=== PATIENT | female | born 1980 | race Caucasian/White ===

== ENCOUNTER 2016-12-28 23:26 | Emergency (ER) | payer MEDICAID ==
[~2016-12-28] VITALS: Ht 162.6 cm; Wt 64.0 kg
[~2016-12-28 23:26] MED LIST: ACYC-101 PO; ALBU6.7H INH; MEDR4PAK PO; MORP1TAB25 PO
[2016-12-28 23:29] VITALS: BP 151/112; PULSE 103; RESP 16; TEMP 97.7; O2SAT 99
[2016-12-28] MEDS ORDERED: ZOFR4TAB3 SL (23:48)
[2016-12-28] MEDS ORDERED: TYLE325T PO (23:48)
[2016-12-28] MEDS ORDERED: PRIL20TA2 PO (23:48)
[2016-12-28] MEDS ORDERED: PANC1CAP9 PO (23:48)
[2016-12-29] MEDS ORDERED: SODIUM CHLORIDE 0.9% FLUSH 10 ML FLUSH IV FLUSH PRN (00:15)
--- NOTE | 2016-12-29 00:39 | RADRPT ---
EXAM DATE/TIME: 12/29/2016 00:22 [place] COMPARISON: CHEST SINGLE AP, November 12, 2015, 14:04. INDICATIONS : Chest discomfort, abdominal pain for 3 days MEDICAL HISTORY : None. SURGICAL HISTORY : None. ENCOUNTER: Initial ACUITY: 3 days PAIN SCORE: 0/10 LOCATION: Bilateral chest FINDINGS: A single view of the chest demonstrates the lungs to be symmetrically aerated without evidence of mas s, infiltrate or effusion. The cardiomediastinal contours are unremarkable. Osseous structures are intact. CONCLUSION: The lungs are clear. Socrates Moore MD on December 29, 2016 at 0:38 Board Certified Radiologist. This report was verified electronically.
[2016-12-29] MEDS ORDERED: MORPHINE SULFATE 4 MG/ML INJ IV PUSH ONE ×2 (01:00→02:00)
[2016-12-29] MEDS ORDERED: ONDANSETRON HCL 4 MG/2 ML VIAL IV PUSH ONE ×2 (01:00→01:45)
[2016-12-29 01:19] LABS: BASOPHIL # 0.3 TH/MM3 (0-0.2); BASOPHIL % 3.1 % (0.0-2.0); EOSINOPHIL # 0.3 TH/MM3 (0-0.4); HEMATOCRIT 47.1 % (35.0-46.0); HEMO FLAGS DIFF FINAL; MEAN CELL VOLUME 93.7 FL (80.0-100.0); MEAN CORPUSCULAR HEMOGLOBIN 31.2 PG (27.0-34.0); MEAN CORPUSCULAR HGB CONC 33.3 % (32.0-36.0); MONO % 6.3 % (0.0-8.0); NEUT % 67.6 % (16.0-70.0); PLATELET COUNT 155 TH/MM3 (150-450); RED BLOOD COUNT 5.03 MIL/MM3 (4.00-5.30); RED CELL DISTRIBUTION WIDTH 13.5 % (11.6-17.2); WHITE BLOOD COUNT 10.2 TH/MM3 (4.0-11.0)
[2016-12-29 01:20] VITALS: BP 145/101; PULSE 95; RESP 17; O2SAT 100
[2016-12-29 01:27] LABS: BLOOD, URINE NEG (NEG); GLUCOSE,URINE NEG (NEG); KETONE, URINE NEG (NEG); NITRITE,URINE NEG (NEG); PH, URINE 5.5 (5.0-8.5)
[2016-12-29 01:28] LABS: CHLORIDE 105 MEQ/L (98-107); POTASSIUM 4.2 MEQ/L (3.5-5.1); SODIUM (NA) 138 MEQ/L (136-145)
[2016-12-29] MEDS ORDERED: SUCRALFATE 1 GM/10 ML CUP PO ONE (01:30)
[2016-12-29 01:32] LABS: ANION GAP 10 MEQ/L (5-15); APTT (PATIENT) 25.9 SEC (24.3-30.1); BICARBONATE 22.7 MEQ/L (21.0-32.0); BLOOD UREA NITROGEN 5 MG/DL (7-18); PROTHROMBIN TIME - PATIENT 11.5 SEC (9.8-11.6)
[2016-12-29 01:35] LABS: ALT (GPT) 128 U/L (10-53); AST (GOT) 171 U/L (15-37); GLOMERULAR FILTRATION RATE 119 ML/MIN (>89)
[2016-12-29 01:36] LABS: BACTERIA, URINE MANY /hpf; COMMENT (UR) CULTURE INDICATED; CULTURE IF INDICATED CULTURE INDICATED; RBC, URINE 0-2 /hpf (0-3); SQUAMOUS EPITHELIAL CELL URINE > 8 /hpf (0-5); TOTAL BILIRUBIN ADULT 0.7 MG/DL (0.2-1.0); URINE COLOR YELLOW (YELLW/STRAW); WBC, URINE 0-2 /hpf (0-5)
[2016-12-29 01:38] LABS: ALKALINE PHOSPHATASE 204 U/L (45-117)
[2016-12-29 01:48] LABS: ALCOHOL 89 MG/DL (0-5)
[2016-12-29] MEDS ORDERED: METOCLOPRAMIDE HCL 10 MG/2 ML VIAL IV PUSH ONE (02:00)
[2016-12-29 02:48] VITALS: BP 115/91; PULSE 102; RESP 17; TEMP 98.5; O2SAT 97
--- NOTE | 2016-12-29 02:58 | PD ---
HPI Chief Complaint: Abdominal Pain Time Seen by Provider: 00:15 Travel History International Travel<30 days: No Contact w/Intl Traveler<30days: No Traveled to known affect area: No History of Present Illness HPI 36-year-old female presents to the emergency department for evaluation of abdominal pain with nausea and vomiting. Patient states symptoms have worsened over the past few days. Patient has history of pancreatitis and cirrhosis. Patient admits to drinking alcohol recently. Patient takes morphine for chronic pain. Patient denies fever or chills. No report of hematemesis or coffee-ground emesis. Patient denies melena hematochezia. Patient has had no injury or fall. Patient states that she's noticed increasing abdominal girth although her symptoms were worse yesterday than today and abdominal girth was greater yesterday than today. Patient denies . Patient is unable to identify exacerbating or alleviating factors. PFSH Past Medical History Narrative Medical Pancreatitis anxiety cirrhosis alcoholism polysubstance use cholecystectomy liver biopsy; nursing notes reviewed Arthritis: No Asthma: Yes Autoimmune Disease: No Blood Disorders: No Anxiety: Yes Depression: No Heart Rhythm Problems: No Cancer: No Cardiovascular Problems: Yes High Cholesterol: No Chemotherapy: No Chest Pain: No Congestive Heart Failure: No Cirrhosis: Yes COPD: No Cerebrovascular Accident: No Diabetes: No Patient Takes Glucophage: No Diminished Hearing: No Diverticulitis: Yes Endocrine: No Gastrointestinal Disorders: Yes GERD: Yes Genitourinary: No Headaches: No Hepatitis: Yes Hiatal Hernia: No Hypertension: Yes (MED NON-COMPLIANCE) Immune Disorder: No Implanted Vascular Access Dvce: No Kidney Stones: No Musculoskeletal: Yes Neurologic: No Psychiatric: Yes Reproductive: No Respiratory: Yes (ASTHMA) Integumentary: Yes (STATES FAMILY MEMBERS HAVE HAD MRSA) Immunizations Current: No Migraines: No Myocardial Infarction: No Pancreatitis: Yes Radiation Therapy: No Renal Failure: No Seizures: Yes Sickle Cell Disease: No Sleep Apnea: No Thyroid Disease: No Ulcer: Yes Tetanus Vaccination: Unknown Influenza Vaccination: No PNEUMOCCOCAL Vaccine (Year): 2 ?: Not LMP: 12/01/2016 Menopausal: No : 1 Para: 1 Miscarriage: 0 : 0 Ovarian Cysts: Yes Past Surgical History Abdominal Surgery: Yes AICD: No Arteriovenous Shunt: No Cardiac Surgery: No Cholecystectomy: Yes (10/2013) Ear Surgery: No Endocrine Surgery: No Eye Surgery: No Genitourinary Surgery: No Gynecologic Surgery: Yes Insulin Pump: No Joint Replacement: No Neurologic Surgery: No Oral Surgery: No Pacemaker: No Thoracic Surgery: No Other Surgery: Yes (LIVER BIOPSY) Social History Alcohol Use: Yes (TODAY [employer]TA[employer] YESTERDAY) Tobacco Use: Yes Substance Use: Yes (MARIJUANA) Allergies-Medications (Allergen,Severity, Reaction): Coded Allergies: *MDRO Multi-Drug Resistant Organism (Verified Adverse Reaction, Unknown, 12/28/16) MRSA (wound) 02/2014 Reported Meds & Prescriptions Reported Meds & Active Scripts Active Proventil Hfa 6.7 GM Inh (Albuterol Sulfate) 90 Mcg/Act Aer 2 Puff INH Q6H PRN Reported Tylenol (Acetaminophen) 325 Mg Tab 325 Mg PO Q4H PRN Prilosec (Omeprazole Magnesium) 20 Mg Tab Mg PO BID Zofran Odt (Ondansetron Odt) 4 Mg Tab 4 Mg SL Q6HR PRN Zenpep (Pancrelipase) 40,000-136,000-218,000 Units Cap 1 Cap PO TIDPC Morphine ER (Morphine Sulfate) 30 Mg Tab 30 Mg PO BID Review of Systems Except as stated in HPI: all other systems reviewed are Neg General / Constitutional: No: Fever, Chills Eyes: No: Visual changes HENT: No: Congestion Cardiovascular: No: Chest Pain or Discomfort Respiratory: No: Shortness of Breath Gastrointestinal: Positive: Nausea, Vomiting, Abdominal Pain, No: Diarrhea, Hematemesis, Hematochezia Genitourinary: No: Dysuria, Flank Pain Musculoskeletal: No: Myalgias, Arthralgias Skin: No Rash Neurologic: No: Weakness Psychiatric: Positive: Anxiety Hematologic/Lymphatic: No: Lymph Node Enlargement Physical Exam Narrative GENERAL: Well-developed well-nourished female in no acute distress no respiratory distress SKIN: Warm and dry. HEAD: Normocephalic. EYES: No scleral icterus. No injection or drainage. NECK: Supple, trachea midline. No JVD or lymphadenopathy. CARDIOVASCULAR: Regular rate and rhythm without murmurs, gallops, or rubs. RESPIRATORY: Breath sounds equal bilaterally. No accessory muscle use. GASTROINTESTINAL: Abdomen soft, mild periumbilical tenderness without guarding or rebound, nondistended. Pelvic exam: Deferred MUSCULOSKELETAL: No cyanosis, or edema. BACK: Nontender without obvious deformity. No CVA tenderness. Data Data Last Documented VS Vital Signs Date Time Temp Pulse Resp B/P (MAP) Pulse Ox O2 Delivery O2 Flow Rate FiO2 12/29/16 03:33 12/29/16 02:48 98.5 102 17 97 Orders Orders Complete Blood Count With Diff (12/29/16 00:15) Comprehensive Metabolic Panel (12/29/16 00:15) Lipase (12/29/16 00:15) Prothrombin Time / Inr (Pt) (12/29/16 00:15) Act Partial Throm Time (Ptt) (12/29/16 00:15) Urinalysis - C+S If Indicated (12/29/16 00:15) Ct Abd/Pel W Iv Contrast(Rout) (12/29/16 00:15) Iv Access Insert/Monitor (12/29/16 00:15) Ecg Monitoring (12/29/16 00:15) Oximetry (12/29/16 00:15) Sodium Chloride 0.9% Flush (Ns Flush) (12/29/16 00:15) Chest, Single Ap (12/29/16 00:15) Ammonia (12/29/16 00:15) Drug Screen, Random Urine (12/29/16 00:15) Ondansetron Inj (Zofran Inj) (12/29/16 01:00) Morphine Inj (Morphine Inj) (12/29/16 01:00) Alcohol (Ethanol) (12/29/16 00:15) Sucralfate Liq (Carafate Liq) (12/29/16 01:30) Ondansetron Inj (Zofran Inj) (12/29/16 01:45) Urine Culture (12/29/16 01:05) Morphine Inj (Morphine Inj) (12/29/16 02:00) Metoclopramide Inj (Reglan Inj) (12/29/16 02:00) Ceftriaxone Inj (Rocephin Inj) (12/29/16 03:00) Labs Laboratory Tests Test 12/29/16 01:05 White Blood Count 10.2 TH/MM3 Red Blood Count 5.03 MIL/MM3 Hemoglobin 15.7 GM/DL Hematocrit 47.1 % Mean Corpuscular Volume 93.7 FL Mean Corpuscular Hemoglobin 31.2 PG Mean Corpuscular Hemoglobin Concent 33.3 % Red Cell Distribution Width 13.5 % Platelet Count 155 TH/MM3 Mean Platelet Volume 8.8 FL Neutrophils (%) (Auto) 67.6 % Lymphocytes (%) (Auto) 20.0 % Monocytes (%) (Auto) 6.3 % Eosinophils (%) (Auto) 3.0 % Basophils (%) (Auto) 3.1 % Neutrophils # (Auto) 7.0 TH/MM3 Lymphocytes # (Auto) 2.0 TH/MM3 Monocytes # (Auto) 0.6 TH/MM3 Eosinophils # (Auto) 0.3 TH/MM3 Basophils # (Auto) 0.3 TH/MM3 CBC Comment DIFF FINAL Differential Comment Prothrombin Time 11.5 SEC Prothromb Time International Ratio 1.0 RATIO Activated Partial Thromboplast Time 25.9 SEC Urine Color YELLOW Urine Turbidity SLIGHT Urine pH 5.5 Urine Specific [place] 1.006 Urine Protein NEG mg/dL Urine Glucose (UA) NEG mg/dL Urine Ketones NEG mg/dL Urine Occult Blood NEG Urine Nitrite NEG Urine Bilirubin NEG Urine Leukocyte Esterase NEG Urine RBC 0-2 /hpf Urine WBC 0-2 /hpf Urine Squamous Epithelial Cells > 8 /hpf Urine Bacteria MANY /hpf Microscopic Urinalysis Comment CULTURE INDICATED Blood Urea Nitrogen 5 MG/DL Creatinine 0.58 MG/DL Random Glucose 129 MG/DL Total Protein 8.6 GM/DL Albumin 3.6 GM/DL Calcium Level 8.7 MG/DL Alkaline Phosphatase 204 U/L Aspartate Amino Transf (AST/SGOT) 171 U/L Alanine Aminotransferase (ALT/SGPT) 128 U/L Total Bilirubin 0.7 MG/DL Sodium Level 138 MEQ/L Potassium Level 4.2 MEQ/L Chloride Level 105 MEQ/L Carbon Dioxide Level 22.7 MEQ/L Anion Gap 10 MEQ/L Estimat Glomerular Filtration Rate 119 ML/MIN Ammonia 38 MCMOL/L Lipase 203 U/L Urine Opiates Screen POS Urine Barbiturates Screen NEG Urine Amphetamines Screen NEG Urine Benzodiazepines Screen NEG Urine Cocaine Screen NEG Urine Cannabinoids Screen POS Ethyl Alcohol Level 89 MG/DL MDM Medical Decision Making Medical Screen Exam Complete: Yes Emergency Medical Condition: Yes Medical Record Reviewed: Yes Interpretation(s) Urine drug screen positive for cannabis and opiates Serum ammonia 38, elevated Last Impressions Chest X-Ray 12/29/16 0015 Signed Impressions: Service Date/Time: Thursday, December 29, 2016 00:22 - CONCLUSION: The lungs are clear. Socrates Moore MD CBC & BMP Diagram 12/29/16 01:05 Total Protein 8.6 H, Albumin 3.6, Calcium Level 8.7, Alkaline Phosphatase 204 H , Aspartate Amino Transf (AST/SGOT) 171 H, Alanine Aminotransferase (ALT/SGPT) 128 H, Total Bilirubin 0.7 Vital Signs Date Time Temp Pulse Resp B/P (MAP) Pulse Ox O2 Delivery O2 Flow Rate FiO2 12/29/16 03:33 12/29/16 02:48 98.5 102 17 115/91 (99) 97 12/29/16 01:50 17 12/29/16 01:20 95 17 145/101 (116) 100 12/28/16 23:29 97.7 103 16 151/112 (125) 99 Urinalysis many bacteria culture indicated Serum alcohol: 89, elevated [place] Differential Diagnosis Abdominal pain, subacute/spontaneous bacterial peritonitis, hepatitis, pancreatitis, alcohol gastritis, UTI, intractable vomiting, dehydration, alcohol abuse, substance abuse Narrative Course Patient placed on court recording monitor with continuous pulse oximetry IV access obtained specimens collected and sent for resulting CT imaging study order IV fluids administered along with morphine 4 mg IV and Zofran 4 mg IV Patient continues to complain of nausea and now requests GI cocktail given Carafate 1 g by mouth Additional Zofran administered Patient continues to complain of vomiting and pain administered Reglan 10 mg IV along with additional morphine 2 mg IV Urinalysis many bacteria culture indicated Serum alcohol 89, elevated urine drug screen positive for opiates patient reportedly prescribed morphine CBC is automated differential total white cell count is within normal range; chemistries increased LFTs normal renal function CT abdomen and pelvis pending Patient refuses imaging by CT abdomen and pelvis for abdominal pain Patient refuses IV antibiotics for bacteriuria/UTI Patient has decided to sign out AGAINST MEDICAL ADVICE and is unwilling to wait for in detailed discussion of risk and benefits of leaving against medical advise versus staying and completing her evaluation. Patient is signed out AMA prior to be having an opportunity to speak with her regarding her decision. Diagnosis Primary Impression: Abdominal pain Qualified Codes: R10.84 - Generalized abdominal pain Additional Impressions: UTI (urinary tract infection) Qualified Codes: N39.0 - Urinary tract infection, site not specified Bacteriuria Disposition: 07 AGAINST MEDICAL ADVICE Condition: Stable Salter,Missy H. MD Dec 29, 2016 02:58
[2016-12-29] MEDS ORDERED: cefTRIAXone INJ 1,000 MG in SODIUM CHLORIDE 0.9% INJ 100 ML IV ONE (03:00)
== END 2016-12-29 03:37 | disposition left against medical advice (07) ==
LOC: PHED 23:26
DX: R10.84 Generalized abdominal pain (principal); N39.0 Urinary tract infection, site not specified; R82.71 Bacteriuria; K74.60 Unspecified cirrhosis of liver; K85.90 Acute pancreatitis without necrosis or infection, unspecified; J45.909 Unspecified asthma, uncomplicated; Z72.0 Tobacco use; Z79.899 Other long term (current) drug therapy
CPT/HCPCS: 71010; 80053; 80307; 81001; 82140; 83690; 85025; 85610; 85730; 87086; 96374; 96375; 96376; 99284; J2270; J2405; J2765

== ENCOUNTER 2016-12-31 20:51 | Emergency (ER) | payer MEDICAID ==
[~2016-12-31] VITALS: Ht 162.6 cm; Wt 65.0 kg
[~2016-12-31 20:51] MED LIST changes: -ACYC-101 PO; -MEDR4PAK PO; +PANC1CAP9 PO; +PRIL20TA2 PO; +TYLE325T PO; +ZOFR4TAB3 SL
[2016-12-31 20:56] VITALS: BP 166/114; PULSE 118; RESP 18; TEMP 97.9; O2SAT 98
--- NOTE | 2016-12-31 21:13 | PD ---
HPI Chief Complaint: Abdominal Pain Time Seen by Provider: 20:56 Travel History International Travel<30 days: No Contact w/Intl Traveler<30days: No Traveled to known affect area: No History of Present Illness HPI The patient is a 36 year old female who presents to the [facility] emergency department with a history of abdominal pain that she reports began a few days ago. She reports having difficulty recalling exactly when. The patient reports that the pain is in the midepigastric area and radiates to her back. The patient reports that the pain is a cramping and sharp type of pain. She reports the pain comes and goes. She reports that the pain is severe when it comes on. She denies any known alleviating or aggravating factors. The patient reports that she does have a history of pancreatitis, hepatitis C, and cirrhosis. Patient reports that she does not drink alcohol regularly, however she did drink 1 last of alcohol yesterday. The patient reports that she's had associated nausea and vomiting. She reports that she's had vomiting 3-4 times today. She can't recall when she last moved her bowels. She reports that she does feel constipated. The patient reports that she is on morphine 30 mg twice a day. She did take her usual doses today. She reports that she does have a history of IV drug use, however she has not used for the last year and a half. The patient denies having any blood in her emesis or stool. According to the electronic medical records the patient was last seen in the emergency department on December 28, 2 days ago. The patient at that time left AGAINST MEDICAL ADVICE prior to the conclusion of her workup. On review of systems, the patient denies having any known fevers, cough, congestion, neck pain, chest pain, shortness of breath, urinary symptoms, or neurologic symptoms. LMP [-] Tetanus is reportedly up to date. PFSH Past Medical History Narrative Medical The patient's past medical history is significant for cirrhosis, pancreatitis, history of alcohol abuse, history of IV drug use, history of anxiety disorder, history of hepatitis C, asthma, history of peptic ulcer disease Arthritis: No Asthma: Yes Autoimmune Disease: No Blood Disorders: No Anxiety: Yes Depression: No Heart Rhythm Problems: No Cancer: No Cardiovascular Problems: Yes High Cholesterol: No Chemotherapy: No Chest Pain: No Congestive Heart Failure: No Cirrhosis: Yes COPD: No Cerebrovascular Accident: No Diabetes: No Diminished Hearing: No Diverticulitis: Yes Endocrine: No Gastrointestinal Disorders: Yes GERD: Yes Genitourinary: No Headaches: No Hepatitis: Yes (C) Hiatal Hernia: No Hypertension: Yes (MED NON-COMPLIANCE) Immune Disorder: No Implanted Vascular Access Dvce: No Kidney Stones: No Musculoskeletal: Yes Neurologic: No Psychiatric: Yes Reproductive: No Respiratory: Yes (ASTHMA) Integumentary: Yes (STATES FAMILY MEMBERS HAVE HAD MRSA) Immunizations Current: No Migraines: No Myocardial Infarction: No Pancreatitis: Yes Radiation Therapy: No Renal Failure: No Seizures: Yes Sickle Cell Disease: No Sleep Apnea: No Thyroid Disease: No Ulcer: Yes PNEUMOCCOCAL Vaccine (Year): 2 ?: Not LMP: 12/17/16 Menopausal: No : 1 Para: 1 Miscarriage: 0 : 0 Ovarian Cysts: Yes Past Surgical History Narrative Surgical The patient's past surgical history is significant for cholecystectomy, liver biopsy. Abdominal Surgery: Yes AICD: No Arteriovenous Shunt: No Cardiac Surgery: No Cholecystectomy: Yes (10/2013) Ear Surgery: No Endocrine Surgery: No Eye Surgery: No Genitourinary Surgery: No Gynecologic Surgery: Yes Insulin Pump: No Joint Replacement: No Neurologic Surgery: No Oral Surgery: No Pacemaker: No Thoracic Surgery: No Other Surgery: Yes (LIVER BIOPSY) Social History Alcohol Use: Yes (reportedly occasionally, last drink yesterday) Tobacco Use: Yes (1/2PPD) Substance Use: Yes (MARIJUANA) Allergies-Medications (Allergen,Severity, Reaction): Coded Allergies: *MDRO Multi-Drug Resistant Organism (Verified Adverse Reaction, Unknown, 12/31/16) MRSA (wound) 02/2014 Reported Meds & Prescriptions Reported Meds & Active Scripts Active Proventil Hfa 6.7 GM Inh (Albuterol Sulfate) 90 Mcg/Act Aer 2 Puff INH Q6H PRN Reported Tylenol (Acetaminophen) 325 Mg Tab 325 Mg PO Q4H PRN Prilosec (Omeprazole Magnesium) 20 Mg Tab Mg PO BID Zofran Odt (Ondansetron Odt) 4 Mg Tab 4 Mg SL Q6HR PRN Zenpep (Pancrelipase) 40,000-136,000-218,000 Units Cap 1 Cap PO TIDPC Morphine ER (Morphine Sulfate) 30 Mg Tab 30 Mg PO BID Review of Systems Except as stated in HPI: all other systems reviewed are Neg General / Constitutional: No: Fever Eyes: No: Visual changes HENT: No: Headaches Cardiovascular: No: Chest Pain or Discomfort Respiratory: No: Shortness of Breath Gastrointestinal: Positive: Nausea, Vomiting, Abdominal Pain, Constipation, Changes in Bowel Habits, Indigestion, Loss of Appetite, No: Diarrhea, Hematemesis, Hematochezia Genitourinary: No: Dysuria Musculoskeletal: No: Pain Skin: No Rash Neurologic: No: Weakness Psychiatric: No: Depression Endocrine: No: Polydipsia Hematologic/Lymphatic: No: Easy Bruising Physical Exam Narrative General: The patient is a well-developed well-nourished female in no acute distress, uncomfortable appearing on arrival, holding her abdomen reporting midepigastric pain. Head and Neck exam: Head is normocephalic atraumatic. Eyes: EOMI, pupils are equal round and reactive to light. Nose: Midline septum with pink mucous membranes Mouth: Dentition unremarkable. Moist mucus membranes. Posterior oropharynx is not erythematous. No tonsillar hypertrophy. Uvula midline. Airway patent. Neck: No palpable lymphadenopathy. No nuchal rigidity. No thyromegaly. Cardiovascular: Sinus tachycardia in the low 100s without murmurs, gallops, or rubs. No pulse deficit to the extremities on simultaneous auscultation and palpation of her radial artery. Lungs: Clear to auscultation bilaterally. No wheezes, rhonchi, or rales. Abdomen: Soft, with tenderness on palpation of the midepigastric area, no other tenderness on palpation of the other quadrants of the abdomen. No guarding, rebound, or rigidity. Normal bowel sounds are audible. No tenderness on palpation of McBurney's point. Negative [place] sign. Extremities: No clubbing, cyanosis, or edema. 2+ pulses in all 4 extremities. No calf tenderness on palpation. Back: No spinous process tenderness to palpation. No costovertebral angle tenderness to palpation. Neurologic Exam: Grossly nonfocal. Skin Exam: No rash noted. Intact skin that is warm and dry. Data Data Last Documented VS Vital Signs Date Time Temp Pulse Resp B/P (MAP) Pulse Ox O2 Delivery O2 Flow Rate FiO2 12/31/16 21:01 18 12/31/16 20:56 97.9 118 166/114 (131) 98 Orders Orders Complete Blood Count With Diff (12/31/16 21:04) Comprehensive Metabolic Panel (12/31/16 21:04) Lipase (12/31/16 21:04) Magnesium (Mg) (12/31/16 21:04) Ct Abd/Pel W Iv Contrast(Rout) (12/31/16 21:04) Iv Access Insert/Monitor (12/31/16 21:04) Ecg Monitoring (12/31/16 21:04) Oximetry (12/31/16 21:04) Alcohol (Ethanol) (12/31/16 21:04) Sodium Chlor 0.9% 1000 Ml Inj (Ns 1000 M (12/31/16 21:15) Ketorolac Inj (Toradol Inj) (12/31/16 21:15) Prochlorperazine Inj (Compazine Inj) (12/31/16 21:15) Ed Urine Pregnancytest Poc (12/31/16 21:04) Ketamine Inj (Ketalar Inj) (12/31/16 21:30) Iohexol 350 Inj (Omnipaque 350 Inj) (12/31/16 22:21) Labs Laboratory Tests Test 12/31/16 21:15 White Blood Count 10.7 TH/MM3 Red Blood Count 4.72 MIL/MM3 Hemoglobin 15.5 GM/DL Hematocrit 45.5 % Mean Corpuscular Volume 96.3 FL Mean Corpuscular Hemoglobin 32.8 PG Mean Corpuscular Hemoglobin Concent 34.0 % Red Cell Distribution Width 14.1 % Platelet Count 164 TH/MM3 Mean Platelet Volume 9.3 FL Neutrophils (%) (Auto) 71.1 % Lymphocytes (%) (Auto) 15.6 % Monocytes (%) (Auto) 11.0 % Eosinophils (%) (Auto) 1.6 % Basophils (%) (Auto) 0.7 % Neutrophils # (Auto) 7.6 TH/MM3 Lymphocytes # (Auto) 1.7 TH/MM3 Monocytes # (Auto) 1.2 TH/MM3 Eosinophils # (Auto) 0.2 TH/MM3 Basophils # (Auto) 0.1 TH/MM3 CBC Comment DIFF FINAL Differential Comment Blood Urea Nitrogen 8 MG/DL Creatinine 0.76 MG/DL Random Glucose 145 MG/DL Total Protein 8.1 GM/DL Albumin 3.6 GM/DL Calcium Level 9.7 MG/DL Magnesium Level 1.6 MG/DL Alkaline Phosphatase 186 U/L Aspartate Amino Transf (AST/SGOT) 91 U/L Alanine Aminotransferase (ALT/SGPT) 108 U/L Total Bilirubin 1.0 MG/DL Sodium Level 136 MEQ/L Potassium Level 3.6 MEQ/L Chloride Level 105 MEQ/L Carbon Dioxide Level 23.7 MEQ/L Anion Gap 7 MEQ/L Estimat Glomerular Filtration Rate 87 ML/MIN Lipase 125 U/L Ethyl Alcohol Level LESS THAN 3 MG/DL MDM Medical Decision Making Medical Screen Exam Complete: Yes Emergency Medical Condition: Yes Medical Record Reviewed: Yes Interpretation(s) Last Impressions Abdomen/Pelvis CT 12/31/162103 Signed Impressions: Service Date/Time: Saturday, December 31, 2016 22:08 - CONCLUSION: 1. Mild nodularity of the liver capsule diffusely indicating possible early findings of cirrhosis. 2. Mild splenomegaly. 3. 3 center right ovarian cyst. 4. No other acute findings identified in the abdomen and pelvis. Easton Cho MD Differential Diagnosis Acute pancreatitis, versus chronic pancreatitis, versus bowel injection, versus peptic ulcer disease, versus gastritis, versus choledocholithiasis, versus constipation, versus diverticulitis Narrative Course During the course of the patients emergency department visit, the patients history, examination, and differential diagnosis were reviewed with the patient. The patient was placed on a cardiac rn with oximetry and frequent blood pressure monitoring. The patient had IV access obtained and blood work sent for analysis. The patient's electronic medical record was reviewed. The patient's CBC was essentially unremarkable, CMP revealed elevated liver enzymes compared to prior evaluation, lipase within normal limits, urinalysis showed squamous epithelial cells present, many bacteria. Culture was indicated. Culture came back as consistent with contaminant. The patient had a CT scan of the abdomen and pelvis ordered. This was not accomplished at that time as the patient left AGAINST MEDICAL ADVICE prior to completion of her workup. The patient was initially provided Toradol 15 mg IV, Compazine 5 mg IV, normal saline 1 L IV fluid bolus. The patients laboratory studies were reviewed and remarkable for white count 10.7, hemoglobin 15.5, platelets 164 with 71.1 neutrophils. CMP is remarkable for a glucose of 145, AST 91, ALT 108, alkaline phosphatase 186, lipase 125, alcohol level less than 3 On reassessment, the patient reported having continued pain. The patient was given ketamine 7.5 mg IV. The patient had improvement of her abdominal pain. A CT scan of the abdomen and pelvis was ordered. Radiology studies were reviewed and remarkable for a chest x-ray done 2 days ago that showed no acute cardiopulmonary disease. CT scan of the abdomen and pelvis shows mild nodularity of the liver capsule, diffusely consistent with early findings of cirrhosis, mild splenomegaly, 3 cm right ovarian cyst, no other acute abnormality. Unfortunately prior to me being able to go and and discussed the patient's CT scan findings with her, the patient decided to leave AGAINST MEDICAL ADVICE. The patient was awake and alert. The patient was oriented to person, place, time, and situation. The patient reported that she would rather get in a hot shower for her pain if she was not quite to be receiving any more pain medicine in the emergency department. Diagnosis Primary Impression: Abdominal pain Qualified Codes: R10.13 - Epigastric pain Referrals: Pain Management Primary Care Physician Patient Instructions: Chronic Abdominal Pain (ED), General Instructions Med/Other Pt SpecificInfo: No Change to Meds Disposition: 07 AGAINST MEDICAL ADVICE Condition: Stable Gemini Mclaughlin MD Dec 31, 2016 21:13
[2016-12-31] MEDS ORDERED: KETOROLAC TROMETHAMINE 30 MG/ML (IVP) VIAL IV PUSH ONE (21:15)
[2016-12-31] MEDS ORDERED: SODIUM CHLOR 0.9% 1000 ML INJ 1,000 ML IV ONE (21:15)
[2016-12-31] MEDS ORDERED: PROCHLORPERAZINE INJ 10 MG/2 ML VIAL IV PUSH ONE (21:15)
[2016-12-31] MEDS ORDERED: KETAMINE HCL 500 MG/5 ML VIAL IV PUSH ONE (21:30)
[2016-12-31 21:44] LABS: AUTOMATED NEUTROPHIL # 7.6 TH/MM3 (1.8-7.7); BASOPHIL # 0.1 TH/MM3 (0-0.2); BASOPHIL % 0.7 % (0.0-2.0); EOSINOPHIL # 0.2 TH/MM3 (0-0.4); EOSINOPHIL % 1.6 % (0.0-4.0); HEMATOCRIT 45.5 % (35.0-46.0); HEMO FLAGS DIFF FINAL; LYMPH % 15.6 % (9.0-44.0); LYMPHOCYTE # 1.7 TH/MM3 (1.0-4.8); MEAN CELL VOLUME 96.3 FL (80.0-100.0); MEAN CORPUSCULAR HEMOGLOBIN 32.8 PG (27.0-34.0); NEUT % 71.1 % (16.0-70.0); PLATELET COUNT 164 TH/MM3 (150-450); RED BLOOD COUNT 4.72 MIL/MM3 (4.00-5.30); RED CELL DISTRIBUTION WIDTH 14.1 % (11.6-17.2); WHITE BLOOD COUNT 10.7 TH/MM3 (4.0-11.0)
[2016-12-31 21:59] LABS: ALCOHOL LESS THAN 3 MG/DL (0-5); ANION GAP 7 MEQ/L (5-15); AST (GOT) 91 U/L (15-37); BICARBONATE 23.7 MEQ/L (21.0-32.0); BLOOD UREA NITROGEN 8 MG/DL (7-18); CHLORIDE 105 MEQ/L (98-107); GLOMERULAR FILTRATION RATE 87 ML/MIN (>89); MAGNESIUM 1.6 MG/DL (1.5-2.5); POTASSIUM 3.6 MEQ/L (3.5-5.1); SODIUM (NA) 136 MEQ/L (136-145)
[2016-12-31 22:00] LABS: ALT (GPT) 108 U/L (10-53)
[2016-12-31 22:01] LABS: ALKALINE PHOSPHATASE 186 U/L (45-117)
[2016-12-31] MEDS ORDERED: IOHEXOL 350 MG/ML 10 ML VIAL (for RAD DIAG) IVCONTRAST ONE (22:21)
--- NOTE | 2016-12-31 22:43 | RADRPT ---
EXAM DATE/TIME: 12/31/2016 22:08 [place] COMPARISON: CT ABDOMEN & PELVIS W CONTRAST, October 25, 2013, 22:53. INDICATIONS : Abdominal pain. IV CONTRAST: 80 cc Omnipaque 350 (iohexol) IV ORAL CONTRAST: No oral contrast ingested. RADIATION DOSE: 7.37 CTDIvol (mGy) MEDICAL HISTORY : Cardiovascular disease. Hypertension. Seizures.Pancreatitis, Cirrhosis, Hepatitis C SURGICAL HISTORY : None. ENCOUNTER: Initial ACUITY: 1 day PAIN SCALE: 5/10 LOCATION: abdomen TECHNIQUE: Volumetric scanning of the abdomen and pelvis was performed. Using automated exposure control and ad justment of the mA and/or kV according to patient size, radiation dose was kept as low as reasonably achievable to obtain optimal diagnostic quality images. DICOM format image data is available electro nically for review and comparison. FINDINGS: LOWER LUNGS: The visualized lower lungs are clear. LIVER: Mild diffuse capsular nodularity of the liver indicating possible early findings of cirrhosis. No foc al mass identified. SPLEEN: Spleen is mildly prominent in AP dimension measuring approximately 13 cm, similar to the prior study. No focal mass. PANCREAS: Within normal limits. KIDNEYS: Normal in size and shape. There is no mass, stone or hydronephrosis. ADRENAL GLANDS: Within normal limits. VASCULAR: There is no aortic aneurysm. BOWEL/MESENTERY: No evidence of bowel dilatation. No free air or free fluid. Appendix is not identified. ABDOMINAL WALL: Within normal limits. RETROPERITONEUM: There is no lymphadenopathy. BLADDER: No wall thickening or mass. REPRODUCTIVE: 3.3 cm cyst in the left adnexal region. INGUINAL: There is no lymphadenopathy or hernia. MUSCULOSKELETAL: Within normal limits for patient age. CONCLUSION: 1. Mild nodularity of the liver capsule diffusely indicating possible early findings of cirrhosis. 2. Mild splenomegaly. 3. 3 center right ovarian cyst. 4. No other acute findings identified in the abdomen and pelvis. Easton Cho MD on December 31, 2016 at 22:34 Board Certified Radiologist. This report was verified electronically.
== END 2016-12-31 23:34 | disposition left against medical advice (07) ==
LOC: NEPE 20:51
DX: R10.13 Epigastric pain (principal); K74.60 Unspecified cirrhosis of liver; R16.1 Splenomegaly, not elsewhere classified; N83.201 Unspecified ovarian cyst, right side; R11.2 Nausea with vomiting, unspecified; F17.200 Nicotine dependence, unspecified, uncomplicated; I10 Essential (primary) hypertension; J45.909 Unspecified asthma, uncomplicated; Z87.19 Personal history of other diseases of the digestive system
CPT/HCPCS: 74177; 80053; 80307; 83690; 83735; 84703; 85025; 96374; 96375; 99285; J0780; J1885; J7030; Q9967